=== PATIENT | female | born 1955 | race Two or more races ===

== ENCOUNTER 2022-05-07 04:03 | Inpatient (IN) | payer BC, MEDICAID ==
[~2022-05-07] VITALS: Ht 160 cm; Wt 95.6 kg
[2022-05-07] MEDS ORDERED: SODIUM CHLORIDE 0.9% 1,000 ML IV ONE ×2 (04:30)
[2022-05-07] MEDS ORDERED: DOPamine 1600MCG/ML D5W 250 ML IV ONE ×3 (04:45→10:45)
[2022-05-07] MEDS ORDERED: HYDROCORTISONE SOD SUCC 100 MG/2ML INJ VIAL IV ONE (05:00)
[2022-05-07 05:38] LABS: Basophils # (auto) 0.1 10 ^3/uL (0-0.2); Basophils % (auto) 0.8 % (0.0-2.0); Eosinophils # (auto) 0.1 10 ^3/uL (0-0.8); Eosinophils % (auto) 1.7 % (0.0-7.0); Hematocrit 35.5 % (36.0-46.0); Hemoglobin 12.5 g/dL (12.2-16.2); Lymphocytes # (auto) 1.7 10 ^3/uL (0.4-5.4); Lymphocytes % (auto) 26.7 % (10.0-50.0); Mean Corpuscular Hemoglobin 32.2 pg (28.0-32.0); Mean Corpuscular Hgb Conc. 35.2 g/dL (32.0-36.0); Mean Corpuscular Volume 91.4 fL (80.0-100.0); Monocytes # (auto) 1.1 10 ^3/uL (0-1.3); Monocytes % (auto) 16.9 % (0.0-12.0); Neutrophils # (auto) 3.4 10 ^3/uL (1.6-8.6); Neutrophils % (auto) 53.9 % (37.0-80.0); Red Blood Cells 3.89 10^6/uL (4.0-5.20); Red Cell Distribution Width 14.3 % (11.8-14.3); White Blood Cell 6.3 10^3/uL (4.4-10.8)
[2022-05-07 05:43] LABS: Urine Bacteria NONE SEEN /hpf (None Seen); Urine Blood Negative /uL (Negative); Urine Specific Gravity 1.005 (1.001-1.035); Urine WBC 1 /hpf (0 - 5)
[2022-05-07 05:52] LABS: INR 1.03 (0.9-1.15); Partial Thromboplastin Time 26.4 sec (23.6-33.0)
[2022-05-07 05:55] LABS: Albumin 3.6 g/dL (3.4-5.0); Calcium 9.4 mg/dL (8.5-10.1); Potassium 4.5 mmol/L (3.5-5.1)
[2022-05-07 06:17] LABS: Bilirubin, Total 0.3 mg/dL (0.2-1.0); Total Protein 6.6 g/dL (6.4-8.2)
[2022-05-07] MEDS ORDERED: ENOXAPARIN SOD 100 MG/1 ML SYRINGE SC ONE (06:30)
[2022-05-07] MEDS ORDERED: NITROGLYCERIN 0.4 MG SL TAB SL PRN (10:15)
[2022-05-07] MEDS ORDERED: ONDANSETRON HCL 4 MG/2 ML VIAL IV PRN (10:15)
[2022-05-07] MEDS ORDERED: MORPHINE SULFATE INJ 2 MG/ml SYRG IV PRN ×3 (10:15→16:45)
[2022-05-07] MEDS ORDERED: ACETAMINOPHEN 325 MG TAB PO PRN ×2 (11:45→16:45)
[2022-05-07] MEDS: SODIUM CHLORIDE 0.9% 1,000 ML IV SCH (14:37)
[2022-05-07] MEDS ORDERED: ASPirin 325 MG TAB PO ONE (15:45)
[2022-05-07] MEDS: ENOXAPARIN SOD 100 MG/1 ML SYRINGE SC ONE ×2 (16:17→17:36)
[2022-05-07 16:29] LABS: INR 1.03 (0.9-1.15); Partial Thromboplastin Time 30.2 sec (23.6-33.0)
[2022-05-07] MEDS ORDERED: LORazepam 0.5 MG TAB PO PRN (16:45)
[2022-05-07] MEDS ORDERED: DOCUSATE SOD 100 MG CAP PO PRN (16:45)
[2022-05-07] MEDS ORDERED: hydrALAZINE HCL 20 MG/ML VL IV PRN (16:45)
[2022-05-07] MEDS ORDERED: BACLOFEN 10 MG TAB PO PRN (16:45)
[2022-05-07 18:01] LABS: Phosphorus 3.2 mg/dL (2.5-4.90)
[2022-05-07] MEDS: HYDROcodone-ACET 5/325MG TAB PO PRN (18:26)
[2022-05-07] MEDS: ONDANSETRON HCL 4 MG/2 ML VIAL IV PRN (22:24)
[2022-05-07] MEDS: ATORVASTATIN 20 MG TAB PO SCH (22:24)
[2022-05-07] MEDS: AMITRIPTYLINE HCL 25 MG TAB PO SCH (22:24)
[2022-05-07] MEDS: GABAPENTIN 100 MG CAP PO SCH (22:25)
[2022-05-08] VITALS (9 sets, daily range): BP systolic 103–146; BP diastolic 46–86
[2022-05-08] MEDS: ONDANSETRON HCL 4 MG/2 ML VIAL IV PRN ×2 (02:45→07:45)
[2022-05-08] MEDS: SODIUM CHLORIDE 0.9% 1,000 ML IV SCH ×2 (03:43→16:55)
[2022-05-08 07:20] LABS: Basophils # (auto) 0 10 ^3/uL (0-0.2); Basophils % (auto) 0.1 % (0.0-2.0); Eosinophils # (auto) 0.1 10 ^3/uL (0-0.8); Hematocrit 37.7 % (36.0-46.0); Hemoglobin 13.1 g/dL (12.2-16.2); Lymphocytes # (auto) 1.8 10 ^3/uL (0.4-5.4); Lymphocytes % (auto) 24.3 % (10.0-50.0); Mean Corpuscular Hemoglobin 31.3 pg (28.0-32.0); Mean Corpuscular Hgb Conc. 34.6 g/dL (32.0-36.0); Mean Corpuscular Volume 90.4 fL (80.0-100.0); Monocytes # (auto) 1.1 10 ^3/uL (0-1.3); Monocytes % (auto) 15.1 % (0.0-12.0); Neutrophils # (auto) 4.4 10 ^3/uL (1.6-8.6); Neutrophils % (auto) 59.5 % (37.0-80.0); Nucleated Red Blood Cells % 0.1 %; Red Blood Cells 4.17 10^6/uL (4.0-5.20); Red Cell Distribution Width 14.2 % (11.8-14.3); White Blood Cell 7.4 10^3/uL (4.4-10.8)
[2022-05-08 07:27] LABS: Albumin 3.5 g/dL (3.4-5.0); Calcium 8.7 mg/dL (8.5-10.1); Magnesium 1.9 mg/dL (1.6-2.6); Potassium 3.4 mmol/L (3.5-5.1)
[2022-05-08 07:32] LABS: INR 0.99 (0.9-1.15)
[2022-05-08 07:37] LABS: BUN/Creatinine Ratio 26.9; Bilirubin, Total 0.5 mg/dL (0.2-1.0); CRP High Sensitivity 1.45 mg/dL (< 0.3); Phosphorus 3.5 mg/dL (2.5-4.90); Total Protein 7.2 g/dL (6.4-8.2)
[2022-05-08] MEDS: HYDROcodone-ACET 5/325MG TAB PO PRN ×2 (07:53→16:15)
[2022-05-08] MEDS: ENOXAPARIN SOD 100 MG/1 ML SYRINGE SC SCH ×2 (10:00→22:21)
[2022-05-08] MEDS: FLUDROCORTISONE ACETATE 0.1 MG TAB PO SCH (10:13)
[2022-05-08] MEDS: PANTOPRAZOLE 40 MG/10 ML VIAL INJ IV SCH (10:14)
[2022-05-08] MEDS: HYDROCORTISONE 10 MG TAB PO SCH (10:14)
[2022-05-08] MEDS: ASPirin 81 mg TAB PO SCH (10:14)
[2022-05-08] MEDS: GABAPENTIN 100 MG CAP PO SCH ×2 (10:15→22:19)
[2022-05-08] MEDS ORDERED: ANGIOMAX 250 MG VIAL IV ONE (12:11)
[2022-05-08] MEDS ORDERED: fentaNYL CITRATE 100 MCG/2 ML VL ONE (12:11)
[2022-05-08] MEDS ORDERED: MIDAZOLAM HCL 2MG/2ML 2ml VIAL (1mg/ml) ONE (12:12)
[2022-05-08] MEDS ORDERED: SODIUM CHL 0.9% 0 ML ONE (12:12)
[2022-05-08] MEDS ORDERED: LIDOCAINE 2%HCL (LOCAL ANESTH.) INJ 10ml MDV ONE (12:16)
[2022-05-08] MEDS ORDERED: IOHEXOL 350 MG/ML 100ML IJ ONE (12:16)
[2022-05-08 20:07] LABS: Urine Bacteria NONE SEEN /hpf (None Seen); Urine Blood 1+ /uL (Negative); Urine Mucus FEW (None Seen); Urine WBC 11 /hpf (0 - 5)
[2022-05-08 20:13] LABS: Protein, Urine 52.4 mg/dL (0.0-11.9)
[2022-05-08 20:14] LABS: Alcohol, Urine < 3.0 mg/dL (0-10); Amphetamine Screen, Urine NEGATIVE (NEGATIVE); Barbiturate Scree,Urine NEGATIVE (NEGATIVE); Benzodiazephine Screen, Urine POSITIVE (NEGATIVE); Cannabinoid Screen, Urine NEGATIVE (NEGATIVE); Cocaine Screen, Urine NEGATIVE (NEGATIVE); Opiate Scree,Urine X-NORESULT (NEGATIVE); Phencyclidine Screen, Urine NEGATIVE (NEGATIVE)
[2022-05-08 20:16] LABS: Urine Specific Gravity > 1.050 (1.001-1.035)
[2022-05-08] MEDS: AMITRIPTYLINE HCL 25 MG TAB PO SCH (22:19)
[2022-05-08] MEDS: ATORVASTATIN 20 MG TAB PO SCH (22:19)
[2022-05-08] MEDS ORDERED: [UNRECOGNIZED DRUG - CODE] (22:30)
[2022-05-09] MEDS ORDERED: TEMAZEPAM 15 MG CAP PO ONE
[2022-05-09 05:00] VITALS: BP 153/70
[2022-05-09 05:34] LABS: Basophils # (auto) 0 10 ^3/uL (0-0.2); Basophils % (auto) 0.2 % (0.0-2.0); Eosinophils # (auto) 0.1 10 ^3/uL (0-0.8); Hematocrit 34.9 % (36.0-46.0); Hemoglobin 11.9 g/dL (12.2-16.2); Lymphocytes # (auto) 2.3 10 ^3/uL (0.4-5.4); Lymphocytes % (auto) 33.1 % (10.0-50.0); Mean Corpuscular Hgb Conc. 34.2 g/dL (32.0-36.0); Mean Corpuscular Volume 90.9 fL (80.0-100.0); Monocytes % (auto) 14.4 % (0.0-12.0); Neutrophils # (auto) 3.5 10 ^3/uL (1.6-8.6); Neutrophils % (auto) 51.3 % (37.0-80.0); Nucleated Red Blood Cells % 0.1 %; Red Blood Cells 3.84 10^6/uL (4.0-5.20); Red Cell Distribution Width 14.4 % (11.8-14.3); White Blood Cell 6.8 10^3/uL (4.4-10.8)
[2022-05-09 05:51] LABS: Calcium 8.1 mg/dL (8.5-10.1); Magnesium 2.1 mg/dL (1.6-2.6); Potassium 3.2 mmol/L (3.5-5.1)
[2022-05-09 05:57] LABS: Bilirubin, Total 0.5 mg/dL (0.2-1.0); Total Protein 6.1 g/dL (6.4-8.2)
[2022-05-09] MEDS: HYDROCORTISONE 10 MG TAB PO SCH (08:52)
[2022-05-09] MEDS: ASPirin 81 mg TAB PO SCH (08:52)
[2022-05-09] MEDS: FLUDROCORTISONE ACETATE 0.1 MG TAB PO SCH (08:53)
[2022-05-09] MEDS: HYDROcodone-ACET 5/325MG TAB PO PRN (08:53)
[2022-05-09] MEDS: GABAPENTIN 100 MG CAP PO SCH (08:53)
[2022-05-09] MEDS: PANTOPRAZOLE 40 MG/10 ML VIAL INJ IV SCH (08:54)
[2022-05-09] MEDS: ENOXAPARIN SOD 100 MG/1 ML SYRINGE SC SCH (08:54)
[2022-05-09 09:00] VITALS: BP 146/92
[2022-05-09 13:00] VITALS: BP 164/80
[2022-05-09] MEDS ORDERED: LISINOPRIL 5 MG TAB PO ONE (13:15)
[2022-05-09] MEDS ORDERED: POTASSIUM CHL 20 Meq TABLET PO ONE (15:30)
[2022-05-09] MEDS ORDERED: [UNRECOGNIZED DRUG - CODE] IN (15:53)
[2022-05-09] MEDS ORDERED: HYDR-4798 PO (15:53)
[2022-05-09] MEDS ORDERED: IBUP600T27 PO (15:53)
[2022-05-09] MEDS ORDERED: NAP500T GT (15:53)
[2022-05-09] MEDS ORDERED: DICL75TA3 PO (15:53)
[2022-05-09] MEDS ORDERED: DEXL60CA4 PO (15:53)
[2022-05-09] MEDS ORDERED: PREG100C PO (15:53)
[2022-05-09] MEDS ORDERED: GABA-339 PO (15:53)
[2022-05-09] MEDS ORDERED: ALEN70TA2 PO (15:53)
[2022-05-09] MEDS ORDERED: LOPE2CAP PO (15:53)
[2022-05-09] MEDS ORDERED: ATOR20TA PO (15:53)
[2022-05-09] MEDS ORDERED: AMIT1TAB34 PO (15:53)
[2022-05-09] MEDS ORDERED: BUPR75TA10 PO (15:53)
[2022-05-09] MEDS ORDERED: SERT50TA19 PO (15:53)
[2022-05-09] MEDS ORDERED: TIZA4TAB9 PO (15:53)
[2022-05-09 16:54] VITALS: BP 134/77
[2022-05-09 17:50] VITALS: BP 134/77
[2022-05-10] MEDS ORDERED: ENOXAPARIN SOD 40 MG/0.4 ML SYRINGE SC SCH (10:00)
[2022-05-10] MEDS ORDERED: LISINOPRIL 5 MG TAB PO SCH (10:00)
== END 2022-05-09 18:47 | disposition home or self-care (01) | DRG 280 ==
LOC: ER 04:03 → OVERFLOW 10:11 → TELE-WESTW 05-08 14:32
PROVIDERS: ADMIT Hospitalist; ATTEND Internal Medicine
PROC: 4A023N8 Measurement of Cardiac Sampling and Pressure, Bilateral, Percutaneous Approach (ICD-10-PCS; principal; 2022-05-08)
PROC: B2111ZZ Fluoroscopy of Multiple Coronary Arteries using Low Osmolar Contrast (ICD-10-PCS; 2022-05-08)
PROC: B2151ZZ Fluoroscopy of Left Heart using Low Osmolar Contrast (ICD-10-PCS; 2022-05-08)
DX: I45.10 Unspecified right bundle-branch block (principal); I50.43 Acute on chronic combined systolic (congestive) and diastolic (congestive) heart failure; I21.A1 Myocardial infarction type 2; R57.0 Cardiogenic shock; N17.0 Acute kidney failure with tubular necrosis; E27.40 Unspecified adrenocortical insufficiency; I95.9 Hypotension, unspecified; E88.81 Metabolic syndrome and other insulin resistance; R73.03 Prediabetes; R00.1 Bradycardia, unspecified; N18.31 Chronic kidney disease, stage 3a; Z20.822 Contact with and (suspected) exposure to COVID-19; E66.01 Morbid (severe) obesity due to excess calories; E78.5 Hyperlipidemia, unspecified; E87.6 Hypokalemia; F32.9 Major depressive disorder, single episode, unspecified; G62.9 Polyneuropathy, unspecified; J44.9 Chronic obstructive pulmonary disease, unspecified; K21.9 Gastro-esophageal reflux disease without esophagitis; K29.70 Gastritis, unspecified, without bleeding; K44.9 Diaphragmatic hernia without obstruction or gangrene; M81.0 Age-related osteoporosis without current pathological fracture; Z90.49 Acquired absence of other specified parts of digestive tract; Z90.710 Acquired absence of both cervix and uterus; Z68.36 Body mass index [BMI] 36.0-36.9, adult; Z88.0 Allergy status to penicillin
CPT/HCPCS: 36415; 70450; 71045; 80053; 80061; 80307; 81001; 82533; 82550; 82728; 83036; 83605; 83615; 83690; 83735; 83880; 83970; 84100; 84156; 84439; 84443; 84484; 84550; 85025; 85379; 85610; 85652; 85730; 86141; 86850; 86900; 86901; 87040; 87081; 87086; 93005; 93460; 93886; 96365; 96375; 99152; 99291; C1751; C9113; G0378; J2001; J2250; J2405